=== PATIENT | male | born 1975 | race Caucasian/White ===

== ENCOUNTER 2021-02-19 08:49 | Emergency (ER) | payer MEDICAID, SELFPAY ==
[2021-02-19 09:24] VITALS: BP 142/89; PULSE 71; RESP 16; TEMP 36.8; O2SAT 97; BMI 34.4
--- NOTE | 2021-02-19 09:58 | ED.DENTAL ---
HPI - Dental/Oral General Chief complaint: Dental/Oral Stated complaint: oral abscess Time Seen by Provider: 02/19/21 09:56 History of Present Illness HPI Narrative: Patient complains of left lower dental pain as well as left lower jaw swelling, no difficulty breathing or swallowing, no swelling under the tongue, no drooling, pain is mild, no fever no chills Related Data Previous Rx's Medication Instructions Recorded acetaminophen 500 mg tablet 1,000 mg PO QID PRN #30 tab 02/19/21 amoxicillin 875 mg-potassium 1 tab PO BID 10 Days #20 tab 02/19/21 clavulanate 125 mg tablet (Augmentin) ibuprofen 600 mg tablet 600 mg PO Q6H PRN #20 tab 02/19/21 Allergies Allergy/AdvReac Type Severity Reaction Status Date / Time No Known Allergies Allergy Verified 02/19/21 09:24 Review of Systems Review of Systems: Positive for left lower left dental pain and facial swelling Negatives are no fever no chills no ear pain no headache no neck pain no difficulty breathing or swallowing no swelling under the tongue no skin rash Yes all other systems are reviewed and are negative [facility] Past Medical History Source: nursing notes reviewed Medical History (Updated 02/19/21 @ 10:10 by ETHAN Mora) No known health problems Social History Social History Advance Directives: Yes Advance Directives Information Provided: Yes Advance Directives on File: No Physical Exam Vital Signs: Vital Signs: Last Vital Signs Temp 98.2 F 02/19/21 09:24 Pulse 71 02/19/21 09:24 Resp 16 02/19/21 09:24 BP 142/89 H 02/19/21 09:24 Pulse Ox 97 02/19/21 09:24 Body Mass Index 34.4 General appearance no acute distress The dental exam there is decay and tenderness over the left rear molar, there is no fluctuant abscess on the gums, there is no trismus no tenderness or swelling under the tongue, patient breathes and swallows easily There is swelling of the face in the area of dental tenderness of the left lower mandible it is not red warm or fluctuant, there is full range of motion in the jaw, no node swelling, no tenderness or swelling in the submandibular area The pharynx is clear without redness swelling or exudate, is mucous membranes are moist Neck is supple Respiratory no distress Skin no rashes Course Course Course Narrative: Patient without fever, no trismus, comfortable is treated with antibiotic for dental abscess and advised follow with dentist Discharge Plan Discharge Clinical Impression: Dental abscess Patient Disposition: Home, Self-Care Additional Instructions: We are treating the infection with Augmentin antibiotic Follow with dentist as soon as possible Return to the ER any time for worse pain and swelling, fever, difficulty breathing or swallowing, any worse condition or any concerns Prescriptions: New amoxicillin-pot clavulanate [Augmentin] 875-125 mg tablet 1 tab PO BID 10 Days Qty: 20 RF: 0 acetaminophen 500 mg tablet 1,000 mg PO QID PRN (Reason: pain) Qty: 30 RF: 0 ibuprofen 600 mg tablet 600 mg PO Q6H PRN (Reason: pain) Qty: 20 RF: 0
[2021-02-19] MEDS: Acetaminophen 325 MG TABLET 975 MG PO (10:22)
[2021-02-19] MEDS: Amoxicillin/Potassium Clav 875 MG TABLET PO (10:22)
== END 2021-02-19 10:27 | disposition home or self-care (01) ==
PROVIDERS: Emergency Provider Emergency Medicine
DX: K12.2 Cellulitis and abscess of mouth (principal); K08.89 Other specified disorders of teeth and supporting structures
CPT/HCPCS: 99283

== ENCOUNTER 2021-09-28 20:58 | Emergency (ER) | payer MEDICAID, SELFPAY ==
[2021-09-28 21:01] VITALS: BP 153/70; PULSE 80; O2SAT 99
[2021-09-28 21:04] VITALS: BP 136/82; PULSE 78; RESP 12; TEMP 36.9; O2SAT 97; BMI 33.6
--- NOTE | 2021-09-28 21:10 | ECG_ITS ---
Test Reason : CHEST PAIN Blood Pressure : / mmHG Vent. Rate : 082 BPM Atrial Rate : 082 BPM P-R Int : 168 ms QRS Dur : 084 ms QT Int : 362 ms P-R-T Axes : 045 -13 026 degrees QTc Int : 422 ms Artifact in tracing Normal sinus rhythm Likely Normal ECG No previous ECGs available Referred By: Tosha Castro Electronically Signed By:GALE LLANES
[2021-09-28 21:21] VITALS: PULSE 88; RESP 14; O2SAT 98
--- NOTE | 2021-09-28 21:26 | ED_ITS ---
HPI - Chest Pain General Chief Complaint: Arrhythmia/Palpitations Stated Complaint: dizziness/cp Time Seen by Provider: 09/28/21 21:09 Source: patient Mode of arrival: EMS History of Present Illness HPI narrative: 46-year-old male without significant past medical history presents with onset of acute on chronic upper left chest wall sharp pain that was radiating into the left shoulder and had resolved by the time EMS arrived and was not associated with any recent fever, chills and not associated with any dizziness/headache/shortness of breath/diaphoresis/nausea and otherwise denies any GI or symptoms. Patient also denies any recent trave, calf swelling. Patient denies any recent development of cough for sore throat. Patient does report that he checks his heart rate at least twice a day, has not spoken with his primary care doctor regarding these intermittent upper left chest wall pains that he has, and states that this evening he noted that his heart rate went from 90 up to 140. Related Data Previous Rx's Medication Instructions Recorded acetaminophen 500 mg tablet 1,000 mg PO QID PRN #30 tab 02/19/21 ibuprofen 600 mg tablet 600 mg PO Q6H PRN #20 tab 02/19/21 Allergies Allergy/AdvReac Type Severity Reaction Status Date / Time No Known Allergies Allergy Verified 02/19/21 09:24 Review of Systems Review of Systems: Pertinent positives and negatives as stated in HPI 10 point review of systems is otherwise negative. PMFSH Past Medical History Source: nursing notes reviewed Medical History No known health problems Social History Social History Patient Tobacco Use Status: Never used Tobacco Use of substances other than those prescribed or required for medical reasons: Yes Substance Use Type: Marijuana Substance Use Frequency: Daily Advance Directives: No Advance Directives Information Provided: No Physical Exam Vital Signs: Vital Signs: Last Vital Signs Temp 98.4 F 09/28/21 21:04 Pulse 84 09/28/21 22:00 Resp 14 09/28/21 22:00 BP 135/90 H 09/28/21 22:00 Pulse Ox 98 09/28/21 22:00 BMI result Body Mass Index 33.6 VITAL SIGNS: Reviewed. GENERAL: Elevated BMI, Well developed, well nourished, in no acute distress. HEAD: Normocephalic/atraumatic EYES: PERRLA, EOMI EARS: Ext canals without abnormality OROPHARYNX: no oral lesions noted, posterior pharynx clear LUNGS: Normal breath sounds. No adventitious sounds or accessory muscle use. SpO2<98> CARDIOVASCULAR: Regular rate and rhythm without noted murmurs, no JVD or lower extremity edema. ABDOMEN: Soft, non-tender, non-distended with bowel sounds. MUSCULOSKELETAL: No tenderness, deformities, or effusions noted on gross inspection. EXTREMITIES: No cyanosis, clubbing or edema. SKIN: Inspection of the skin reveals no rashes NEUROLOGIC: Alert and oriented x 4. Strength and sensation to light touch were grossly intact x 4. Course Course Course Narrative: 46-year-old male with history and clinical presentation most consistent with anxiety and musculoskeletal pain, but will rule out cardiopulmonary etiologies, patient is PERC negative and there is no family history of early cardiac ischemia. Review of all investigations otherwise negative for acute findings. All results were discussed with patient at bedside he was encouraged to follow-up with primary care provider for further outpatient management. MDM - Chest Pain Lab Data Result diagrams: 09/28/21 21:32 09/28/21 21:32 Labs: Lab Results 09/28/21 09/28/21 09/28/21 Range/Units 21:32 21:32 21:32 WBC 9.3 (4.8-10.8) X10*3/uL RBC 5.02 (4.60-5.80) X10*6/uL Hgb 14.5 (14.0-18.0) g/dl Hct 43.3 (42.0-52.0) % MCV 86.3 (80.0-98.0) fL MCH 28.9 (27.0-33.0) pg MCHC 33.5 (31.0-36.0) g/dl RDW 12.1 (11.0-16.0) % Plt Count 295 (160-400) X10*3/uL MPV 8.9 L (9.4-12.4) fL Immature Gran % (Auto) 0.5 H (0.0-0.4) % Neut % (Auto) 62.2 (45-73) % Lymph % (Auto) 28.5 (20-40) % [place] % (Auto) 7.2 (2-11) % Eos % (Auto) 1.2 (0-4) % Baso % (Auto) 0.4 (0-2) % Lymph # (Auto) 2.6 (1.2-4.9) X10*3/uL [place] # (Auto) 0.7 (0.1-1.2) X10*3/uL Eos # (Auto) 0.1 (0.0-0.4) X10*3/uL Baso # (Auto) 0.0 (0.0-0.2) X10*3/uL Abs Immat Gran (auto) 0.05 H (0.00-0.03) X10*3/uL Absolute Neuts (auto) 5.8 (2.0-8.3) x10*3/uL Absolute Nucleated RBC 0.000 (0.0-0.012) X10*3/uL Nucleated RBC % (auto) 0.0 (0.0-0.2) /100WBC D-Dimer High Sensitivty < 150 NG/ML Sodium 139 (135-145) mmol/L Potassium 4.0 (3.3-5.1) mmol/L Chloride 106 (96-108) mmol/L Carbon Dioxide 26 (22-29) mmol/L Anion Gap 11 L (12-20) BUN 14 (9-16) mg/dL Creatinine 0.83 (0.5-1.4) mg/dL Estim Creat Clear Calc 126.3 Estimated GFR > 60 Random Glucose 97 (60-115) mg/dL Calcium 9.2 (8.4-10.2) mg/dL Total Bilirubin 0.3 (0.0-1.0) mg/dL AST 18 (5-37) U/L ALT 27 (0-40) U/L Alkaline Phosphatase 90 (39-117) U/L Troponin I High Sens (<3.5-35.0) ng/L Total Protein 7.2 (6.5-8.0) g/dL Albumin 4.4 (3.5-5.0) g/dL 09/28/21 Range/Units 21:32 WBC (4.8-10.8) X10*3/uL RBC (4.60-5.80) X10*6/uL Hgb (14.0-18.0) g/dl Hct (42.0-52.0) % MCV (80.0-98.0) fL MCH (27.0-33.0) pg MCHC (31.0-36.0) g/dl RDW (11.0-16.0) % Plt Count (160-400) X10*3/uL MPV (9.4-12.4) fL Immature Gran % (Auto) (0.0-0.4) % Neut % (Auto) (45-73) % Lymph % (Auto) (20-40) % [place] % (Auto) (2-11) % Eos % (Auto) (0-4) % Baso % (Auto) (0-2) % Lymph # (Auto) (1.2-4.9) X10*3/uL [place] # (Auto) (0.1-1.2) X10*3/uL Eos # (Auto) (0.0-0.4) X10*3/uL Baso # (Auto) (0.0-0.2) X10*3/uL Abs Immat Gran (auto) (0.00-0.03) X10*3/uL Absolute Neuts (auto) (2.0-8.3) x10*3/uL Absolute Nucleated RBC (0.0-0.012) X10*3/uL Nucleated RBC % (auto) (0.0-0.2) /100WBC D-Dimer High Sensitivty NG/ML Sodium (135-145) mmol/L Potassium (3.3-5.1) mmol/L Chloride (96-108) mmol/L Carbon Dioxide (22-29) mmol/L Anion Gap (12-20) BUN (9-16) mg/dL Creatinine (0.5-1.4) mg/dL Estim Creat Clear Calc Estimated GFR Random Glucose (60-115) mg/dL Calcium (8.4-10.2) mg/dL Total Bilirubin (0.0-1.0) mg/dL AST (5-37) U/L ALT (0-40) U/L Alkaline Phosphatase (39-117) U/L Troponin I High Sens < 3.5 (<3.5-35.0) ng/L Total Protein (6.5-8.0) g/dL Albumin (3.5-5.0) g/dL ECG Data ECG #1: Attestation: I personally reviewed and interpreted this ECG as follows: Prior ECG tracings: not available for review Interpretation: NSR, HR-82, no STEMI, TN/QRS/QTC are within normal limits. Discharge Plan Discharge Clinical Impression: Anxiety, Atypical chest pain Patient Disposition: Home, Self-Care Instructions: Anxiety (ED), Chest Wall Pain (ED) Additional Instructions: 1. I encourage you to follow-up with primary care provider by calling the office on Thursday morning for further investigations and re-evaluation. Return to the ER for any worsening of symptoms. Prescriptions: No Action acetaminophen 500 mg tablet 1,000 mg PO QID PRN (Reason: pain) Qty: 30 0RF ibuprofen 600 mg tablet 600 mg PO Q6H PRN (Reason: pain) Qty: 20 0RF
[2021-09-28 21:36] LABS: MANUAL DIFF FLAG NO
[2021-09-28 21:38] LABS: Basophils Percent Auto 0.4 % (0-2); Eosinophils Absolute Auto 0.1 X10*3/uL (0.0-0.4); Eosinophils Percent Auto 1.2 % (0-4); Hematocrit 43.3 % (42.0-52.0); Hemoglobin 14.5 g/dl (14.0-18.0); Imm Gran Abs Auto 0.05 X10*3/uL (0.00-0.03); Imm Gran Pct Auto 0.5 % (0.0-0.4); Lymphocytes Absolute Auto 2.6 X10*3/uL (1.2-4.9); Lymphocytes Percent Auto 28.5 % (20-40); Mean Corpuscular HGB Conc 33.5 g/dl (31.0-36.0); Mean Corpuscular Hemoglobin 28.9 pg (27.0-33.0); Mean Corpuscular Volume 86.3 fL (80.0-98.0); Mean Platelet Volume 8.9 fL (9.4-12.4); Monocytes Absolute Auto 0.7 X10*3/uL (0.1-1.2); Monocytes Percent Auto 7.2 % (2-11); Neutrophils Absolute Auto 5.8 x10*3/uL (2.0-8.3); Neutrophils Percent Auto 62.2 % (45-73); Platelet Count 295 X10*3/uL (160-400); Red Blood Count 5.02 X10*6/uL (4.60-5.80); Red Cell Distribution Width 12.1 % (11.0-16.0); White Blood Count 9.3 X10*3/uL (4.8-10.8)
[2021-09-28 21:53] VITALS: BP 138/83; PULSE 83
[2021-09-28 21:57] VITALS: BP 138/89; PULSE 77
[2021-09-28 21:57] LABS: Alanine Aminotransferase 27 U/L (0-40); Albumin Level 4.4 g/dL (3.5-5.0); Alkaline Phosphatase 90 U/L (39-117); Anion Gap 11 (12-20); Aspartate Amino Transferase 18 U/L (5-37); Bilirubin Total 0.3 mg/dL (0.0-1.0); Blood Urea Nitrogen 14 mg/dL (9-16); Calcium 9.2 mg/dL (8.4-10.2); Carbon Dioxide 26 mmol/L (22-29); Chloride 106 mmol/L (96-108); Creatinine Clr Calc Pharmacy 126.3; Estimated Glomerular Filt Rate > 60; Glucose Random 97 mg/dL (60-115); Sodium 139 mmol/L (135-145); Total Protein 7.2 g/dL (6.5-8.0)
[2021-09-28 21:59] LABS: Troponin-I High Sensitivity < 3.5 ng/L (<3.5-35.0)
[2021-09-28 22:00] VITALS: BP 135/90; PULSE 84; PULSE 85; RESP 14; O2SAT 98
[2021-09-28 22:13] LABS: D Dimer High Sensitivity < 150 NG/ML
== END 2021-09-28 22:27 | disposition home or self-care (01) ==
PROVIDERS: Emergency Provider Student in an Organized Health Care Education/Training Program
DX: F41.9 Anxiety disorder, unspecified (principal); R07.89 Other chest pain; F12.90 Cannabis use, unspecified, uncomplicated
CPT/HCPCS: 36415; 80053; 84484; 85025; 85379; 93005; 99285

== ENCOUNTER 2022-03-18 15:40 | Emergency (ER) | payer MEDICAID, SELFPAY ==
[2022-03-18 16:34] VITALS: BP 136/87; PULSE 80; RESP 18; TEMP 36.8; O2SAT 100; BMI 32.6
== END 2022-03-18 19:11 | disposition left against medical advice (07) ==
PROVIDERS: Emergency Provider Emergency Medicine
DX: I10 Essential (primary) hypertension (principal); F41.1 Generalized anxiety disorder; F43.0 Acute stress reaction
CPT/HCPCS: 99281

== ENCOUNTER 2022-03-26 21:45 | Emergency (ER) | payer MEDICAID, SELFPAY ==
[2022-03-26 21:53] VITALS: BP 200/100; PULSE 100; O2SAT 95
[2022-03-26 22:00] VITALS: BP 113/80; PULSE 88; RESP 20; O2SAT 98; BMI 33.6
--- NOTE | 2022-03-26 22:24 | ECG_ITS ---
Test Reason : CHEST PAIN Blood Pressure : / mmHG Vent. Rate : 069 BPM Atrial Rate : 069 BPM P-R Int : 178 ms QRS Dur : 084 ms QT Int : 382 ms P-R-T Axes : 052 -15 019 degrees QTc Int : 409 ms Normal sinus rhythm Normal ECG When compared with ECG of 28-SEP-2021 21:18, No significant change was found Referred By: Meño Matthews Electronically Signed By:JARETT JOSEPH
--- NOTE | 2022-03-26 22:25 | ED_ITS ---
HPI - Chest Pain General Chief Complaint: Chest Pain Stated Complaint: HYPERTENSION Time Seen by Provider: 03/26/22 21:55 Source: patient Mode of arrival: ambulatory Limitations: no limitations History of Present Illness HPI narrative: 47-year-old male who presents emergency department for evaluation of chest pain and high blood pressure. Patient states that approximately 8 years ago he was diagnosed with high blood pressure and started on medications for about 1 month. He states that he stop the medications and lost approximately 30-40 lb with improvement of his blood pressure. Patient states that he went to see a dentist in September of 2021 and was told that he had a very elevated blood pressure of 180/110. He was seen here in the emergency department and had a negative workup. Patient states that he never followed up with a PCP. He states that over the past week he has been checking his blood pressure 3 or 4 times a day. He states his blood pressure seems to be normal in the morning but is elevated at night. States that this evening he was concerned about his blood pressure and checked his blood pressure was 180/110. He states this made him very anxious therefore he called an ambulance and was brought to the emergency department. Patient states that he has been experiencing intermittent chest pain for approximately 1-2 months. He points to his mid sternal area when asked to loca lize his pain. He states the pain will last seconds but comes on frequently throughout the day. He does not think that this chest pain is related to exertion. Describes the pain as a tightness which is 2/10 at its worst. He also states the pain is worse if he presses on his chest. MD complaint: chest pain Onset (ago): month(s) (2) Timing of current episode: episodic Prior episodes: Yes Onset: during rest Pain location: substernal Pain radiation: none Severity: mild Pain scale (0-10): 2 Quality: aching Relieving factors: nothing Exacerbating factors: movement ( Pressing on chest) Treatment prior to arrival: none Related Data Previous Rx's Medication Instructions Recorded acetaminophen 500 mg tablet 1,000 mg PO QID PRN pain #30 tabs 02/19/21 ibuprofen 600 mg tablet 600 mg PO Q6H PRN pain #20 tabs 02/19/21 Allergies Allergy/AdvReac Type Severity Reaction Status Date / Time No Known Allergies Allergy Verified 03/18/22 16:34 Review of Systems Review of Systems: Yes all other systems are reviewed and are negative [facility] Past Medical History [facility] Narrative: past medical history: None. Past surgical history: None. Social history: Patient is a former smoker and quit smoking 3 years prior. He smoked 1-2 packs of cigarettes per day times 20 years. Denies alcohol use. He states that he does use marijuana daily, he mainly uses edibles but occasionally smokes marijuana. Medical History No known health problems Social History Social History Patient Tobacco Use Status: Never used Tobacco Substance Use Type: Marijuana Advance Directives: No Advance Directives Information Provided: No Physical Exam Vital Signs: Vital Signs: Last Vital Signs Pulse 88 03/26/22 22:00 Resp 20 03/26/22 22:00 BP 113/80 03/26/22 22:00 Pulse Ox 98 03/26/22 22:00 O2 Del Method 03/26/22 22:00 BMI result Body Mass Index 33.6 Const: General: cooperative and no acute distress Orientation/consciousness: oriented to person and oriented to place Limitations: no limitations HEENT: Head: Yes normal to inspection, Yes normocephalic and Yes atraumatic Ears: external ears normal General nose exam: Normal external nose present Face and sinus: Yes normal facial exam Mouth: Normal oral and palatal mucosa present Throat: Yes posterior oropharynx normal Eyes: General: appearance normal, both eyes and all related structures Pupils: Equal, round and reactive pupils present Neck: Neck: Yes normal visual inspection, Yes no lymphadenopathy, Yes trachea midline and Yes supple Chest: Chest palpation & inspection: normal inspection of the chest and tenderness ( [id number] with pressure over sternum) Resp: Effort & Inspection: normal respiratory effort and able to speak in complete sentences Auscultation: clear to auscultation bilaterally Cardio: Rate: regular rate Rhythm: regular rhythm Heart sounds: S1 normal heart sound present, S2 normal heart sound present and no murmurs GI: Inspection: Yes normal to inspection Palpation (GI): Soft to palpation, nontender and no guarding Auscultation: normal bowel sounds : General: Yes no CVA tenderness Back/Spine/Pelvis: Back: no CVA tenderness Skin: General skin exam: no rashes or lesions noted Neuro: General: oriented to person and oriented to place Cranial nerves: Yes CN's II-XII intact bilaterally and Yes Equal, round and reactive pupils present Cognition (Neuro): normal cognition Motor exam (neuro): 5/5 motor strength present throughout Extrem: General: Yes normal to inspection Psych: Appearance: grossly normal Speech and movement: Normal speech and movement present Affect: normal affect Attitude: cooperative Thought process: Normal thought process present Thought content: Normal thought content present Course Course Course Narrative: 47-year-old male who presents emergency department for evaluation of elevated blood pressure and intermittent chest pain x2 months. The patient states over the past week he has been taking his blood pressure 3 times a day and he has noted that his blood pressure is normal in the morning but elevated in the afternoon and evening. The patient did take his blood pressure this evening and he states that it was 180/110 so called an ambulance was brought to emergency department. He states he has been experiencing intermittent sternal chest pain which lasts seconds, he gets this frequently throughout the day, the pain is worse with movement and worse if he pushes on his chest. Patient's blood pressure here in the emergency department was normal at 113/80. I will obtain an EKG on this patient. 2307: Patient's 12 EKG was unremarkable. I do not think that the patient's chest pain is cardiac in is more consistent with musculoskeletal pain I did discuss this with him. I did discuss the management and diagnosis of hypertension with the patient. At this time the patient will be treated with behavior modification, exercise, weight loss and no salt diet. The patient was given printed and verbal instructions and discharged home. Discharge Plan Discharge Clinical Impression: Chest pain, musculoskeletal Patient Disposition: Home, Self-Care Additional Instructions: Your blood pressure was normal in the emergency department. Your EKG was normal. High blood pressure instructions: The reason to check your blood pressure at home is to give your doctor an idea of what your blood pressure does when you are not in the doctor's office. Take your blood pressure in the mornings, Mondays , Wednesdays and Fridays and then write down these readings to discuss them with your doctor at your next visit. There are 2 strategies to reducing your blood pressure. As we discussed, cutting salt out of your diet, exercising and losing 5-10 lb may correct your blood pressure. As we also discussed, Starting a blood pressure medication is also acceptable however I believe in your case, behavior modification over the next 3-6 months would be more appropriate. It often takes 3-6 months or longer to get your blood pressure under control with behavior modification and with medications. The goal is to get your blood pressure under control over the rest of your life to prevent increased risk of heart disease, stroke and kidney failure. Please return to the emergency department if you develops concerning symptoms such as severe headache, chest pain, shortness of breath, difficulty walking secondary to shortness of breath, numbness, weakness, difficulty talking. Follow-up with your doctor to discuss your blood pressure readings Please return to the emergency department if your symptoms get worse or if you develop any new symptoms that are concerning to you. Prescriptions: No Action acetaminophen 500 mg tablet 1,000 mg PO QID PRN (Reason: pain) Qty: 30 0RF ibuprofen 600 mg tablet 600 mg PO Q6H PRN (Reason: pain) Qty: 20 0RF
[2022-03-26 23:39] VITALS: BP 105/69; PULSE 86; RESP 16; TEMP 36.6; O2SAT 99
== END 2022-03-26 23:40 | disposition home or self-care (01) ==
PROVIDERS: Emergency Provider Emergency Medicine Emergency Medical Services
DX: R07.89 Other chest pain (principal); M79.18 Myalgia, other site; I10 Essential (primary) hypertension
CPT/HCPCS: 93005; 99283; 99285